=== PATIENT | female | born 1990 | race Two or more races ===

== ENCOUNTER 2025-04-01 19:01 | Inpatient (IN) | payer OTHER ==
[~2025-04-01] VITALS: Ht 165.1 cm; Wt 56.7 kg
--- NOTE | 2025-04-01 20:24 | NUR ---
PACIENTE ALERTA Y ORIENTADA X 3. CARYL REFERIDO DE DRA Junior OLVERA POR EMBARAZO ECTOPICO PARA SER ADMITIDA AL AREA DE RETAIL RESET MERCHANDISER.
[2025-04-01 20:28] VITALS: O2SAT 100
[2025-04-01 22:16] LABS: BASO % 0.3 % (0.1-1.2); EOS # 0.13 (0.04-0.54); EOS % 1.9 % (0.7-7.0); LYMPH # 2.72 (1.18-3.74); LYMPH % 38.9 % (19.3-53.1); MEAN PLATELET VOLUME 10.20 fl (9.4-12.4); MONO # 0.55 (0.24-0.82); MONO % 7.9 % (4.7-12.5); NEUT # 3.55 (1.56-6.13); NEUT % 50.7 % (34.0-71.1); RED CELL DISTRIBUTION WIDTH 12.6 % (11.6-14.4)
[2025-04-01 22:40] LABS: INR 1.02
[2025-04-01 22:47] LABS: ALT/SGPT 24.0 U/L (12-78); AST/SGOT 14.0 U/L (15-37); BILIRUBIN TOTAL 0.21 mg/dL (0.3-1.2); BUN CREA RATIO 15.0 (7.0-25.0); CREATININE SERUM 0.68 mg/dL (0.55-1.02); GFR 97.9; GLOBULINA 2.8 G/DL (2.4-3.5); GLUCOSE FASTING 89.0 mg/dL (65-100); HCG QUANTITATIVE 396.0 mUI/mL (1-3); OSMOLALITY SERUM 283.0 MOSM/KG (275-295)
[2025-04-01 23:22] LABS: URINE APPEARANCE Clear; URINE BILIRRUBIN Negative (NEGATIVE); URINE BLOOD Negative; URINE COLOR Yellow; URINE GLUCOSE Negative (NEGATIVE); URINE KETONE Negative (NEGATIVE); URINE LEUKOCYTE Negative; URINE NITRATE Negative; URINE PROTEIN Negative (NEGATIVE); URINE UROBILINOGEN 1.0 E.U./dl
[2025-04-01 23:28] LABS: URINE BACTERIA 1339.0 uL (0.0-1933); URINE EPITHELIAL CELLS 55.5 uL (0.0-38.8); URINE WBC 8.3 uL (0.0-23.2)
[2025-04-02] LABS: URINE CAST 0.00 uL (0.0-1.40); URINE RBC 1.3 uL (0.0-20.8)
[2025-04-02 02:23] VITALS: BP 99/67
[2025-04-02] MEDS ORDERED: RINGERS SOLUTION,LACTATED 1,000 ML IV SCH (02:45)
[2025-04-02 08:16] VITALS: BP 105/71
[2025-04-02 10:57] LABS: RH POSITIVE
[2025-04-02] MEDS ORDERED: METHOTREXATE SODIUM/PF 25 MG/ML VIAL IM ONE (12:45)
[2025-04-02 16:32] VITALS: BP 100/67
== END 2025-04-02 16:50 | disposition home or self-care (01) | DRG 833 ==
LOC: ER 19:01 → OB/GYN 20:47
PROVIDERS: ADMIT Specialist; ATTEND Specialist
PROC: BU4CZZZ Ultrasonography of Uterus and Ovaries (ICD-10-PCS; principal; 2025-04-02)
DX: O00.90 Unspecified ectopic pregnancy without intrauterine pregnancy (principal)